=== PATIENT | female | born 1955 ===

== ENCOUNTER 2019-01-27 08:42 | Outpatient (CLI) | payer BC | END 2019-01-27 08:43 | disposition home or self-care (01) | LOC: LAB 08:42 ==

== ENCOUNTER 2019-03-06 05:58 | Emergency (ER) | payer BC ==
[2019-03-06 05:58] VITALS: BMI 32.3
[2019-03-06 06:08] VITALS: RESP 18; TEMP 97.5; O2SAT 100
--- NOTE | 2019-03-06 06:19 | ED PDOC ---
Arrival/HPI - General Chief Complaint: Abdominal Pain Time Seen by Provider: 03/06/19 06:03 Historian: Patient - History of Present Illness Narrative History of Present Illness (Text): 03/06/19 06:17 Benny Bain is a 64 year old female, whose past medical history includes thyroid nodule and hypertension, who presents to the ED complaining of vomiting. Patient states she has been experiencing nausea with multiple episodes of vomiting, dizziness, and diffuse body aches since eating yesterday evening. Patient denies any fever, chills, chest pain, shortness of breath, diarrhea, urinary symptoms, back pain, neck pain, headache, or any other complaints. Symptom Onset: Gradual Symptom Course: Unchanged Activities at Onset: Light Context: Home Past Medical History - Provider Review Nursing Documentation Reviewed: Yes - Past History Past History: No Previous - Infectious Disease Hx of Infectious Diseases: None - Tetanus Immunization Tetanus Immunization: Unknown - Past Medical History Past Medical History: No Previous - Cardiac Hx Cardiac Disorders: No - Pulmonary Hx Respiratory Disorders: No Hx Pneumonia: Yes - Neurological Hx Neurological Disorder: No - HEENT Hx HEENT Disorder: No - Renal Hx Renal Disorder: No - Endocrine/Metabolic Hx Endocrine Disorders: No - Hematological/Oncological Hx Blood Disorders: No Other/Comment: CLAUDE BELTRAN - Integumentary Hx Dermatological Disorder: No - Musculoskeletal/Rheumatological Hx Falls: Yes - Gastrointestinal Hx Gastrointestinal Disorders: Yes Hx Gastroesophageal Reflux: Yes Other/Comment: esophagitis, gastritis, diverticulosis, hemorrhoids, H. pylori - Genitourinary/Gynecological Hx Genitourinary Disorders: No - Psychiatric Hx Psychophysiologic Disorder: No Hx Substance Use: No - Past Surgical History Past Surgical History: No Previous - Surgical History Hx Musculoskeletal Surgery: Yes (C-SPINE SURGERY) - Anesthesia Hx Anesthesia: Yes Hx Anesthesia Reactions: No Hx Malignant Hyperthermia: No - Suicidal Assessment Feels Threatened In Home Enviroment: No Family/Social History - Physician Review Nursing Documentation Reviewed: Yes Family/Social History: Unknown Family HX Smoking Status: Never Smoked Hx Alcohol Use: No Hx Substance Use: No Hx Substance Use Treatment: No Allergies/Home Meds Allergies/Adverse Reactions: Allergies amoxicillin trihydrate [From Augmentin] Adverse Reaction (Verified 03/03/17 23:06) NAUSEA potassium clavulanate [From Augmentin] Adverse Reaction (Verified 03/03/17 23:06) NAUSEA Review of Systems - Physician Review All systems were reviewed & negative as marked: Yes - Review of Systems Constitutional: Normal. absent: Fevers Eyes: Normal ENT: Normal Respiratory: Normal. absent: SOB, Cough Cardiovascular: Normal. absent: Chest Pain Gastrointestinal: Nausea, Vomiting Genitourinary Female: Normal. absent: Dysuria, Frequency, Hematuria, Urine Output Changes Musculoskeletal: Myalgias (+diffuse body aches) Skin: Normal. absent: Rash Neurological: Dizziness Endocrine: Normal Hemo/Lymphatic: Normal Psychiatric: Normal Physical Exam Vital Signs Reviewed: Yes Vital Signs Temp Pulse Resp BP Pulse Ox 03/06/19 06:06 97.5 F L 50 L 18 158/73 H 100 Temperature: Afebrile Blood Pressure: Normal Pulse: Regular Respiratory Rate: Normal Appearance: Positive for: Well-Appearing, Non-Toxic, Comfortable Pain Distress: None Mental Status: Positive for: Alert and Oriented X 3 - Systems Exam Head: Present: Atraumatic, Normocephalic Pupils: Present: PERRL Extroacular Muscles: Present: EOMI Conjunctiva: Present: Normal Mouth: Present: Moist Mucous Membranes Neck: Present: Normal Range of Motion Respiratory/Chest: Present: Clear to Auscultation, Good Air Exchange. No: Respiratory Distress, Accessory Muscle Use Cardiovascular: Present: Regular Rate and Rhythm, Normal S1, S2. No: Murmurs Abdomen: No: Tenderness, Distention, Peritoneal Signs Back: Present: Normal Inspection Upper Extremity: Present: Normal Inspection. No: Cyanosis, Edema Lower Extremity: Present: Normal Inspection. No: Edema Neurological: Present: GCS=15, CN II-XII Intact, Speech Normal Skin: Present: Warm, Dry, Normal Color. No: Rashes Psychiatric: Present: Alert, Oriented x 3, Normal Insight, Normal Concentration Medical Decision Making ED Course and Treatment: 03/06/19 06:17 Impression: 64 year old female complaining of nausea, vomiting, dizziness, and body aches. Plan: -- CT Head w/o contrast -- EKG -- Labs, lipase, troponin -- IV fluids -- Zofran -- Antivert -- Reassess and disposition Prior Visits: Notes and results from previous visits were reviewed. Progress Notes: - EKG Interpretation EKG Interpretation (Text): 03/06/19 06:36 sinus bradycardia rate 59 no acute changes - Transfer of Care Patient signed out to Dr:: dimitri labs and ct and dispo - Scribe Statement The provider has reviewed the documentation as recorded by the Scribe Gabi Singletary Provider Scribe Attestation: All medical record entries made by the Scribe were at my direction and personally dictated by me. I have reviewed the chart and agree that the record accurately reflects my personal performance of the history, physical exam, medical decision making, and the department course for this patient. I have also personally directed, reviewed, and agree with the discharge instructions and disposition. Disposition/Present on Arrival - Present on Arrival Any Indicators Present on Arrival: No History of DVT/PE: No History of Uncontrolled Diabetes: No Urinary Catheter: No History of Decub. Ulcer: No History Surgical Site Infection Following: None - Disposition Have Diagnosis and Disposition been Completed?: Yes Diagnosis: Dizziness, Vomiting, Gastritis Disposition: HOME/ ROUTINE Disposition Time: 07:00 Condition: STABLE Discharge Instructions (ExitCare): Nausea and Vomiting, Adult, Gastritis (DC) Additional Instructions: return for any new or worsening symptoms. Prescriptions: Omeprazole 20 mg PO DAILY #14 capsule. Ondansetron [Zofran] 4 mg PO Q8H #12 tab Referrals: Denys Mckeon MD [Primary Care Provider] - Follow up with primary Forms: [employer] (Mauritian), WORK NOTE
[2019-03-06] MEDS ORDERED: Sodium Chloride 0.9% 1,000 ML IV SCH (06:30)
[2019-03-06 06:35] LABS: BASO # 0.02 K/mm3 (0.0-2.0); BASO % 0.2 % (0.0-3.0); EOS # 0.1 (0.0-0.7); EOS % 0.5 % (1.5-5.0); HEMOGLOBIN 14.1 g/dL (12.0-16.0); LYMPH # 2.3 (1.2-3.4); LYMPH % 21.2 % (22.0-35.0); MEAN CELL VOLUME 83.2 fl (80.0-105.0); MEAN CORPUSCULAR HEMOGLOBIN 28.3 pg (25.0-35.0); MEAN PLATELET VOLUME 11.9 fl (7.0-11.0); MONO # 0.4 (0.1-0.6); MONO % 3.5 % (1.0-6.0); RBC 4.99 10^6/uL (3.5-6.1); RED CELL DISTRIBUTION WIDTH 13.6 % (11.5-14.5); WHITE BLOOD COUNT 10.7 10^3/uL (4.5-11.0)
[2019-03-06 06:42] LABS: ALB/GLOB RATIO 1.5 (1.1-1.8); ALBUMIN 4.5 g/dL (3.0-4.8); ALT/SGPT 35 U/L (7-56); AST/SGOT 32 U/L (14-36); BLOOD UREA NITROGEN 23 mg/dL (7-21); CALCIUM 9.7 mg/dL (8.4-10.5); GFR NON-AFRICAN AMERICAN > 60; LIPASE 49 U/L (23-300)
[2019-03-06 07:00] LABS: TROPONIN I < 0.01 ng/mL
[2019-03-06 07:37] VITALS: BP 175/62
[2019-03-06 08:41] VITALS: PULSE 58
--- NOTE | 2019-03-06 09:10 | ED PDOC ---
Physical Exam Vital Signs Temp Pulse Resp BP Pulse Ox 03/06/19 08:40 58 L 18 100 03/06/19 07:37 57 L 18 175/62 H 100 03/06/19 06:06 97.5 F L 50 L 18 158/73 H 100 Medical Decision Making ED Course and Treatment: 03/06/19 07:00 Case endorsed to me by Dr. Graff. 03/06/19 10:28 patient feels well, states that she would rather go home. I have offered admission to the hospital because the patient states she feels somewhat unsteady on her feet. patient was provided with full explanation of reason to admit but ultimately states she feels well to go home. patient understands and agrees with discharge and will return for any new or worsening symptoms. 03/06/19 10:[address] No acute or significant findings related to/ accounting for the clinical presentation. - Lab Interpretations Lab Results: Troponin I < 0.01 ng/mL 03/06/19 06:15 Total Bilirubin 0.6 mg/dL (0.2-1.3) 03/06/19 06:15 AST 32 U/L (14-36) 03/06/19 06:15 ALT 35 U/L (7-56) 03/06/19 06:15 Alkaline Phosphatase 96 U/L (38-126) 03/06/19 06:15 Total Protein 7.5 g/dL (5.8-8.3) 03/06/19 06:15 Albumin 4.5 g/dL (3.0-4.8) 03/06/19 06:15 Globulin 3.0 gm/dL 03/06/19 06:15 Albumin/Globulin Ratio 1.5 (1.1-1.8) 03/06/19 06:15 Lipase 49 U/L (23-300) 03/06/19 06:15 - RAD Interpretation Radiology Orders: 03/06/19 06:25 HEAD W/O CONTRAST [CT] Stat - Medication Orders Current Medication Orders: Sodium Chloride (Sodium Chloride 0.9%) 1,000 mls @ 80 mls/hr IV .[id number] OPAL Last Admin: 03/06/19 06:30 Dose: 80 mls/hr eMAR Start Stop Document 03/06/19 06:30 AD (Rec: 03/06/19 06:35 AD [id number]) Intravenous Solution Start Date 03/06/19 Start Time 06:30 Discontinued Medications Meclizine HCl (Antivert) 12.5 mg PO STAT STA Stop: 03/06/19 06:27 Last Admin: 03/06/19 06:42 Dose: 12.5 mg Ondansetron HCl (Zofran Inj) 4 mg IVP STAT STA Stop: 03/06/19 06:27 Last Admin: 03/06/19 06:30 Dose: 4 mg IVP Administration Document 03/06/19 06:30 AD (Rec: 03/06/19 06:37 AD [id number] Charges for Administration # of IVP Administrations 1 - Scribe Statement The provider has reviewed the documentation as recorded by the Reina Garzon All medical record entries made by the Sophiaibtahir were at my direction and personally dictated by me. I have reviewed the chart and agree that the record accurately reflects my personal performance of the history, physical exam, medical decision making, and the department course for this patient. I have also personally directed, reviewed, and agree with the discharge instructions and disposition. Disposition/Present on Arrival - Present on Arrival Any Indicators Present on Arrival: No History of DVT/PE: No History of Uncontrolled Diabetes: No Urinary Catheter: No History of Decub. Ulcer: No History Surgical Site Infection Following: None - Disposition Have Diagnosis and Disposition been Completed?: Yes Diagnosis: Dizziness, Vomiting, Gastritis Disposition: HOME/ ROUTINE Disposition Time: 10:34 Patient Plan: Discharge Condition: STABLE Discharge Instructions (ExitCare): Nausea and Vomiting, Adult, Gastritis (DC) Additional Instructions: return for any new or worsening symptoms. Prescriptions: Omeprazole 20 mg PO DAILY #14 capsule. Ondansetron [Zofran] 4 mg PO Q8H #12 tab Referrals: Denys Mckeon MD [Primary Care Provider] - Follow up with primary Forms: [employer] (Kiswahili), WORK NOTE
--- NOTE | 2019-03-06 09:26 | CT ---
Date of service: 03/06/2019 PROCEDURE: CT HEAD WITHOUT CONTRAST. HISTORY: dizzy COMPARISON: [place] repair are now rated next 2 min of TECHNIQUE: Axial computed tomography images were obtained through the head/brain without intravenous contrast. Supplemental Coronal and Sagittal projections created and reviewed. Radiation dose: Total exam DLP = <inf_radiation_dlp> mGy-cm. This CT exam was performed using one or more of the following dose reduction techniques: Automated exposure control, adjustment of the mA and/or kV according to patient size, and/or use of iterative reconstruction technique. FINDINGS: HEMORRHAGE: No intracranial hemorrhage. BRAIN: No mass effect or edema. No atrophy or chronic microvascular ischemic changes. VENTRICLES: Unremarkable. No hydrocephalus. CALVARIUM: Calvarial defect/postoperative changes inferior occipital bone primarily midline. Adjacent cerebellar hemispheres are unaffected. PARANASAL SINUSES: Unremarkable as visualized. No significant inflammatory changes. MASTOID AIR CELLS: Unremarkable as visualized. No inflammatory changes. OTHER FINDINGS: None. IMPRESSION: No acute or significant findings related to/ accounting for the clinical presentation. Additional benign and/or incidental findings described above. No significant interval change compared to the prior examination(s). Concordant results (preliminary interpretation) provided by REJI REED. Procedure Completed: 06:58. Preliminary Report: Interpreted and electronically signed: 07:24. Final Interpretation: 09:21.
--- NOTE | 2019-03-06 10:46 | CARD ---
APPROVED REPORT Date of service: 03/06/2019 EKG Measurement Heart [id number] <Conclusion> Marked sinus bradycardia Abnormal ECG
== END 2019-03-06 10:48 | disposition home or self-care (01) ==
LOC: ED 05:58
DX: K29.70 Gastritis, unspecified, without bleeding (principal); R42 Dizziness and giddiness; I10 Essential (primary) hypertension
CPT/HCPCS: 70450; 80053; 83690; 84484; 85025; 93005; 96374; 99284; J2405; J7030